=== PATIENT | male | born 1985 | race Caucasian/White ===

== ENCOUNTER 2017-01-14 10:43 | Emergency (ER) | payer MEDICAID ==
--- NOTE | 2017-01-14 11:02 | EDM.PDOC ---
ED HPI GENERAL MEDICAL PROBLEM - General Chief Complaint: Syncope Stated Complaint: syncope, nausea/vomiting Time Seen by Provider: 01/14/17 10:55 Source of Information: Reports: Patient, Old Records ([facility] EMR. No paper hospital chart available.) History Limitations: Reports: No Limitations - History of Present Illness INITIAL COMMENTS - FREE TEXT/NARRATIVE: The patient drove himself to the emergency room via private automobile for evaluation of a syncopal episode at home at about 7 AM this morning with some nausea and one episode of emesis at that time. He did have a minor fall and head injury at time of the above episode with history of recurrent syncope at least 3 times in the past since March 2016 with no previous workup to this point. He does admit to drinking at least 10 shots of liquor mixed with energy drinks with last alcohol intake at about 1 AM this morning. He denies any urinary/stool incontinence seizure activity,visual changes, change in mental status, paresthesia, neurological deficits, or other significant complaints or injuries. Patient does have a 7/10 nonspecific generalized headache at this time. No recent history of abdominal pain, heartburn, diarrhea, melena, gross hematochezia, or any food intolerance, including fatty foods, etc.. He did have a normal bowel movement at 8 AM by his history. The patient denies any chest pain/pressure, heart flutter, orthostasis, orthopnea, diaphoresis, paresthesias , recent decreased exercise tolerance, or any other anginal-type symptoms, however some nonspecific dizziness and vertigo. The patient also denies any recent fever, cough, wheezing, dyspnea, etc.. Onset: Today, Sudden Onset Date: 01/14/17 Onset Time: 07:00 Duration: Intermittent Location: Reports: Head. Denies: Face, Neck, Chest, Abdomen, Back, Pelvis, Upper Extremity, Left, Upper Extremity, Right, Lower Extremity, Left, Generalized, Radiates to Quality: Reports: Ache, Pressure, Same as Previous Episode Severity: Moderate Improves with: Reports: Rest Worsens with: Reports: Movement Context: Reports: Other (As above) Associated Symptoms: Reports: Headaches, Loss of Appetite (Occasional), Nausea/ Vomiting, Syncope. 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 [No Known Home Meds] 01/14/17 [History] Past Medical History HEENT History: Reports: Allergic Rhinitis. Denies: Hard of Hearing, Impaired Vision Cardiovascular History: Reports: Syncope. Denies: Afib, Aneurysm, Arrhythmia, Blood Clots/VTE/DVT, CAD, Heart Murmur, Hypertension, NV, PVD Other Cardiovascular History: Recurrent syncope since March 2016 with no workup to this point; Patient does not know cholesterol status Respiratory History: Reports: Asthma, Sleep Apnea, Other (See Below). Denies: Bronchitis, Recurrent, Intubation, Previous, PE, Pneumonia, Recurrent, Pneumothorax Other Respiratory History: Patient noncompliant with his CPAP Gastrointestinal History: Reports: Colon Polyp, Gastritis, GERD, PUD, Other ( See Below). Denies: Celiac Disease, Cholelithiasis, Chronic Constipation, Chronic Diarrhea, Fecal Incontinence, GI Bleed, Hepatitis, Irritable Bowel Syndrome, Jaundice, Pancreatitis Other Gastrointestinal History: History of probable gastric ulcer secondary to alcohol use Genitourinary History: Reports: None, STD, Other (See Below). Denies: Acute Renal Failure, BPH, Chronic Renal Insuffiency, Renal Calculus, Urinary Incontinence, UTI, Recurrent Other Genitourinary History: Herpes simplex type 2 in 2016 Musculoskeletal History: Reports: Arthritis, Back Pain, Chronic, Fracture, Neck Pain, Chronic, Osteoarthritis, Other (See Below). Denies: Amputation, Gout, RA , SLE Other Musculoskeletal History: Frequent right hand fractures of metatarsals #4 and #5boxer's fracture fractures with last fracture in about 2014 Neurological History: Reports: Headaches, Chronic, Migraines, Other (See Below) . Denies: Cerebral Aneurysms, Concussion, CVA, Head Trauma, MS, Neuropathy, Peripheral, Parkinson's, Seizure, TIA Other Neuro History: Borderline dyslexia Psychiatric History: Reports: ADHD, Addiction, Anxiety, Depression, Emotional Problems, Other (See Below). Denies: Abuse, Victim of, Psych Hospitalization(s) , PTSD, Suicide Attempt, Suicidal Ideation Other Psychiatric History: Alcohol and illicit drug addiction as below Endocrine/Metabolic History: Reports: None. Denies: Diabetes, Type I, Diabetes , Type II, Hypothyroidism, IDDM Hematologic History: Reports: None. Denies: Anemia, Blood Transfusion(s), Iron Deficiency Immunologic History: Reports: None. Denies: AIDS, HIV, SLE Oncologic (Cancer) History: Reports: None. Denies: Hodgkin's Lymphoma, Leukemia , Lymphoma, Malignant Melanoma, Non-Hodgkin's Lymphoma, Ovarian, Squamous Cell Carcinoma Dermatologic History: Denies: Eczema, Psoriasis - Infectious Disease History Infectious Disease History: Reports: None. Denies: C-Difficile, Chicken Pox, Measles, Meningitis, Mononucleosis, MRSA, Mumps, Pertussis (Whooping Cough), Rheumatic Fever, RSV, Rubella, Scarlet Fever, Shingles, TB, VRE - Past Surgical History Head Surgeries/Procedures: Reports: None HEENT Surgical History: Reports: None. Denies: Adenoidectomy, Eye Surgery, Myringotomy w Tube(s), Naso-Sinus Surgery, Oral Surgery, Tonsillectomy Cardiovascular Surgical History: Reports: None. Denies: Varicose Respiratory Surgical History: Reports: None. Denies: Thoracentesis GI Surgical History: Reports: Colonoscopy, Polypectomy, Other (See Below). Denies: Appendectomy, Cholecystectomy, Hernia, Abdominal, Hernia, Inguinal, Hernia Repair/Other Other GI Surgeries/Procedures: Colonoscopy in 2009 with removal of 3 polyps of unknown type at that time. Unsuccessful EGD at that time by his history Male Surgical History: Reports: Circumcision, Other (See Below). Denies: Vasectomy Other Male Surgeries/Procedures: Circumcision as an Endocrine Surgical History: Reports: None. Denies: Thyroid Biopsy Neurological Surgical History: Reports: None. Denies: C-Spine, Discectomy, Intracranial, Laminectomy, Lumbar Spine, Scoliosis, Spinal Fusion, Vertebroplasty Musculoskeletal Surgical History: Reports: None. Denies: Arthroscopic Procedure , Carpal Tunnel, Ganglion Cyst, Joint Replacement, ORIF, Shoulder Surgery Oncologic Surgical History: Reports: None Dermatological Surgical History: Reports: None Social & Family History - Tobacco Use Smoking Status *Q: Heavy Tobacco Smoker Tobacco Use Within Last Twelve Months: Cigarettes Years of Tobacco use: 18 Packs/Tins Daily: 0.4 (Started smoking cigarettes at age 13 with maximum use of one pack per day; additional chewing tobacco use since age 26 with one half1 can per day) Used Tobacco, but Quit: No Smoking Cessation Information Provided To Patient: Yes Second Hand Smoke Exposure: Yes Source of Second Hand Smoke Exposure: Roommate smokes Second Hand Smoke Education Provided: Yes - Caffeine Use Caffeine Use: Reports: Energy Drinks (1 can per week), Soda (3 sodas per day and he). Denies: Coffee, Tea - Alcohol Use Alcohol Use History: Yes Days Per Week of Alcohol Use: 5 (No Previous DWIs however history of alcohol abuse with no previous treatment) Number of Drinks Per Day: 6 (Usually shots or beer) Total Drinks Per Week: 30 Date of Last Drink: 01/14/17 Time of Last Drink: 01:00 Alcohol Use in Last Twelve Months: Yes Alcohol Use Frequency: Binges - Recreational Drug Use Recreational Drug Use: No Recreational Drug Type: Reports: Cocaine (Cocaine use between ages 19 and 26 intranasally), Marijuana/Hashish (Marijuana use since age 14 with average use of one joint 2 times per week). Denies: Amphetamines (Speed), Heroin, Inhalants (Glues, Solvents, Aerosols), LSD (Acid), Methamphetamine, Morphine - Living Situation & Occupation Living situation: Reports: Single (No children), Other (Roommate) Occupation: Unemployed (Previously worked at [employer]) ED ROS GENERAL - Review of Systems Review Of Systems: See Below Constitutional: Reports: Decreased Appetite (Mild), Weight Loss (Mild). Denies : Fever, Chills, Weakness, Fatigue, Night Sweats, Diaphoresis, Weight Gain HEENT: Reports: No Symptoms, Vertigo. Denies: Dental Pain, Ear Pain, Eye Pain, Glasses, Hearing Loss, Rhinitis, Sinus Problem, Throat Pain, Throat Swelling, Vision Change Respiratory: Reports: No Symptoms. Denies: Shortness of Breath, Wheezing, Pleuritic Chest Pain, Cough, Hemoptysis Cardiovascular: Reports: Lightheadedness, Syncope. Denies: Chest Pain, Blood Pressure Problem, Claudication, Dyspnea on Exertion, Orthopnea, Palpitations, PND Endocrine: Reports: No Symptoms. Denies: Fatigue GI/Abdominal: Reports: Anorexia, Decreased Appetite, Nausea, Vomiting. Denies: Abdominal Pain, Black Stool, Bloody Stool, Constipation, Diarrhea, Distension, Flatus, Hematemesis, Hematochezia, Melena, Stool Incontinence : Reports: No Symptoms. Denies: Discharge, Dysuria, Flank Pain, Frequency, Hematuria, Incontinence, Pain, Urgency, Urinary Retention Musculoskeletal: Reports: No Symptoms. Denies: Neck Pain, Shoulder Pain, Arm Pain, Back Pain, Leg Pain Skin: Reports: No Symptoms. Denies: Jaundice, Diaphoresis, Bruising, Wound Neurological: Reports: Dizziness, Syncope. Denies: Headache, Numbness, Paresthesia, Seizure, Tingling, Difficulty Walking, Weakness, Change in Speech, Gait Disturbance Psychiatric: Reports: Anxiety, Cravings (Alcohol), Depression. Denies: Agitation, Confusion, Hallucinations, Homicidal Ideation, Suicidal Ideation ED EXAM, GENERAL - Physical Exam Exam: See Below Exam Limited By: Intoxication General Appearance: Alert, WD/WN, No Apparent Distress, Anxious (Moderate) Eye Exam: Bilateral Eye: EOMI, Normal Fundi, Normal Inspection (No nystagmus), PERRL Ears: Normal External Exam, Normal Canal (Although moderate to severe cerumen bilaterally), Hearing Grossly Normal, Normal TMs Nose: Normal Inspection, Normal Mucosa, No Blood Throat/Mouth: Normal Lips, Normal Gums, Normal Oropharynx, Normal Voice, No Airway Compromise. No: Normal Teeth (Multiple broken teeth and caries into the gumline of his molars and premolars with no facial swelling, abscess, drainage, etc.), Dysphagia, Perioral Cyanosis Head: Atraumatic, Normocephalic. No: Facial Swelling, Facial Tenderness, Sinus Tenderness Neck: Normal Inspection, Supple, Non-Tender, Full Range of Motion. No: Carotid Bruit, Lymphadenopathy (L), Lymphadenopathy (R), Thyromegaly Respiratory/Chest: No Respiratory Distress, Lungs Clear, Normal Breath Sounds, No Accessory Muscle Use, Chest Non-Tender. No: Pleural Rub, Retractions Cardiovascular: Normal Peripheral Pulses, Regular Rate, Rhythm, No Edema, No Gallop, No JVD, No Murmur, No Rub. No: Gallop/S3, Gallop/S4 Peripheral Pulses: 2+: Radial (L), Radial (R), Dorsalis Pedis (L), Dorsalis Pedis (R) GI/Abdominal: Normal Bowel Sounds, Soft, Non-Tender, No Organomegaly, No Distention, No Abnormal Bruit, No Mass. No: Guarding (Male) Exam: Deferred Rectal (Males) Exam: Deferred Back Exam: Normal Inspection, Full Range of Motion. No: CVA Tenderness (L), CVA Tenderness (R), Muscle Spasm Extremities: Normal Inspection, Normal Range of Motion, Non-Tender, No Pedal Edema, Normal Capillary Refill. No: Uvaldo's Sign Neurological: Alert, Oriented, CN II-XII Intact, Normal Cognition, Normal Gait, Normal Reflexes (Negative Babinski's, finger to nose, and pronator rotation tests. No evidence of facial paresis, tongue deviation, orthostasis, etc.. Excellent reverse thought processes.), No Motor/Sensory Deficits, Other (Mild to moderate clinical orthostasis) Psychiatric: Anxious (Moderate), Depressed Mood (Moderate with adequate eye contact) Skin Exam: Warm, Dry, Intact, Normal Color, No Rash. No: Diaphoretic, Jaundice , Pallor, Petechiae, Wound/Incision Lymphatic: No Adenopathy EKG INTERPRETATION EKG Date: 01/14/17 Time: 11:20 Rhythm: NSR Rate (Beats/Min): 78 [place]: Normal (Neutral) P-Wave: Present (Mild diffuse biphasic P waves with pulmonary hypertension by EKG) QRS: Normal (QRS interval of 0.10 seconds representing polarization changes with T-wave inversion in leads V1 and aVL) ST-T: Normal QT: Normal SC/PQ Interval: 0.14 seconds with no delta waves Comparison: NA - No Prior EKG EKG Interpretation Comments: 1. No acute ischemic changes 2. Repolarization changes 3. Pulmonary hypertension by EKG Course - Vital Signs Last Recorded V/S: Last Vital Signs Temp 36.8 C 01/14/17 10:56 Pulse 77 01/14/17 13:04 Resp 17 01/14/17 13:04 BP 152/92 H 01/14/17 13:04 Pulse Ox 100 01/14/17 13:04 Vital Signs - 24 hr 01/14/17 01/14/17 01/14/17 10:45 10:48 10:50 Temperature [ Oral] Pulse, 100 87 90 Peripheral [ Right Pulse Oximetry] Respiratory 18 18 18 Rate Blood Pressure 127/95 H 100/78 98/76 [Right Upper Arm] O2 Sat by Pulse 100 100 100 Oximetry 01/14/17 01/14/17 01/14/17 10:56 11:35 12:00 Temperature [ 36.8 C Oral] Pulse, 90 72 74 Peripheral [ Right Pulse Oximetry] Respiratory 12 18 18 Rate Blood Pressure 127/92 H 127/95 H 124/95 H [Right Upper Arm] O2 Sat by Pulse 100 100 100 Oximetry 01/14/17 01/14/17 01/14/17 12:09 12:25 12:40 Temperature [ Oral] Pulse, 77 77 80 Peripheral [ Right Pulse Oximetry] Respiratory 17 18 18 Rate Blood Pressure 146/94 H 142/96 H 140/95 H [Right Upper Arm] O2 Sat by Pulse 100 100 100 Oximetry 01/14/17 01/14/17 01/14/17 12:45 12:55 13:04 Temperature [ Oral] Pulse, 85 85 77 Peripheral [ Right Pulse Oximetry] Respiratory 18 17 17 Rate Blood Pressure 133/90 138/86 152/92 H [Right Upper Arm] O2 Sat by Pulse 100 100 100 Oximetry - Orders/Labs/Meds Orders: Active Orders 24 hr Category Date Time Status Cardiac Monitoring [RC] . DIRECTED Care 01/14/17 11:03 Active EKG Documentation Completion [RC] ASDIRECTED Care 01/14/17 11:03 Active Peripheral IV Care [RC] . DIRECTED Care 01/14/17 11:03 Active Pulse Oximetry [RC] CONTINUOUS Care 01/14/17 11:03 Active Up With Assistance [RC] PFP Care 01/14/17 11:03 Active Vital Signs [RC] PFP Care 01/14/17 11:03 Active Nothing per Oral Now Diet [DIET] Diet 01/14/17 Breakfast Active Abdomen Series w Chest 1V [CR] Stat Exams 01/14/17 11:31 Taken CULTURE URINE [RM] Routine Lab 01/14/17 11:04 Uncollected DRUG SCREEN, URINE [URCHEM] Stat Lab 01/14/17 11:04 Uncollected URINALYSIS W/MICROSCOPIC [UA W/MICROSCOPIC] [URIN] Lab 01/14/17 11:04 Uncollected Routine Sodium Chloride 0.9% [Saline Flush] Med 01/14/17 11:03 Active 10 ml FLUSH ASDIRECTED PRN Obtain Past Medical Record [OM.PC] Urgent Oth 01/14/17 11:03 Active Peripheral IV Insertion Adult [OM.PC] Stat Oth 01/14/17 11:03 Ordered Resuscitation Status Stat Resus Stat 01/14/17 11:03 Ordered Medication Orders Sodium Chloride (Saline Flush) 10 ml FLUSH ASDIRECTED PRN PRN Reason: Keep Vein Open Last Admin: 01/14/17 11:16 Dose: 10 ml Labs: Laboratory Tests 01/14/17 01/14/17 01/14/17 Range/Units 11:14 11:14 11:14 WBC 8.4 (4.0-10.2) K/uL RBC 5.36 (4.33-5.41) M/uL Hgb 18.1 H* D (13.1-16.8) g/dL Hct 49.4 H (39.0-49.0) % MCV 92.2 D (84.0-98.0) fL MCH 33.8 H (28.2-33.3) pg MCHC 36.6 H (31.7-36.0) g/dL RDW 12.1 (11.2-14.1) % Plt Count 290 (150-350) K/uL Neut % (Auto) 68.0 (45.0-80.0) % Lymph % (Auto) 24.0 (10.0-50.0) % [place] % (Auto) 7.2 (2.0-14.0) % Eos % (Auto) 0.6 (0.0-5.0) % Baso % (Auto) 0.2 (0.0-2.0) % Neut # (Auto) 5.69 (1.40-7.00) K/uL Lymph # (Auto) 2.01 (0.50-3.50) K/uL [place] # (Auto) 0.60 (0.00-1.00) K/uL Eos # (Auto) 0.05 (0.00-0.50) K/uL Baso # (Auto) 0.02 (0.00-0.20) K/uL PT 11.6 (9.8-11.7) SEC INR 1.1 APTT 23.8 (22.1-29.8) SEC D-Dimer, Quantitative < 100 (0-400) ng/mL Sodium (136-145) mmol/L Potassium (3.5-5.1) mmol/L Chloride (98-107) mmol/L Carbon Dioxide (21.0-32.0) mmol/L BUN (7-18) mg/dL Creatinine (0.51-1.17) mg/dL Est Cr Clr Drug Dosing mL/min Estimated GFR (MDRD) mL/min Glucose (74-106) mg/dL Lactic Acid (0.4-2.0) mmol/L Uric Acid (2.6-7.2) mg/dL Calcium (8.5-10.1) mg/dL Magnesium (1.8-2.4) mg/dL Total Bilirubin (0.2-1.0) mg/dL AST (15-37) U/L ALT (12-78) U/L Alkaline Phosphatase (46-116) IU/L Ammonia (11-32) umol/L Creatine Kinase (26-308) U/L Creatine Kinase Index (0.0-2.5) % CK-MB (CK-2) (0.00-3.60) ng/mL Troponin I (0.000-0.056) ng/mL NT-Pro-B Natriuret Pep (0-125) pg/mL Total Protein (6.4-8.2) g/dL Albumin (3.4-5.0) g/dL TSH, Ultra Sensitive (0.358-3.740) mIU/mL Ethyl Alcohol (0.000-0.080) g/dL 01/14/17 01/14/17 01/14/17 Range/Units 11:14 11:14 11:14 WBC (4.0-10.2) K/uL RBC (4.33-5.41) M/uL Hgb (13.1-16.8) g/dL Hct (39.0-49.0) % MCV (84.0-98.0) fL MCH (28.2-33.3) pg MCHC (31.7-36.0) g/dL RDW (11.2-14.1) % Plt Count (150-350) K/uL Neut % (Auto) (45.0-80.0) % Lymph % (Auto) (10.0-50.0) % [place] % (Auto) (2.0-14.0) % Eos % (Auto) (0.0-5.0) % Baso % (Auto) (0.0-2.0) % Neut # (Auto) (1.40-7.00) K/uL Lymph # (Auto) (0.50-3.50) K/uL [place] # (Auto) (0.00-1.00) K/uL Eos # (Auto) (0.00-0.50) K/uL Baso # (Auto) (0.00-0.20) K/uL PT (9.8-11.7) SEC INR APTT (22.1-29.8) SEC D-Dimer, Quantitative (0-400) ng/mL Sodium 142 (136-145) mmol/L Potassium 4.1 (3.5-5.1) mmol/L Chloride 106 (98-107) mmol/L Carbon Dioxide 26.0 (21.0-32.0) mmol/L BUN 9 (7-18) mg/dL Creatinine 0.89 (0.51-1.17) mg/dL Est Cr Clr Drug Dosing 105.12 mL/min Estimated GFR (MDRD) > 60 mL/min Glucose 108 H (74-106) mg/dL Lactic Acid 2.4 H (0.4-2.0) mmol/L Uric Acid 7.1 (2.6-7.2) mg/dL Calcium 9.1 (8.5-10.1) mg/dL Magnesium 2.1 (1.8-2.4) mg/dL Total Bilirubin 0.7 (0.2-1.0) mg/dL AST 23 (15-37) U/L ALT 29 (12-78) U/L Alkaline Phosphatase 131 H (46-116) IU/L Ammonia 20 (11-32) umol/L Creatine Kinase 78 (26-308) U/L Creatine Kinase Index 2.1 (0.0-2.5) % CK-MB (CK-2) 1.60 (0.00-3.60) ng/mL Troponin I 0.000 (0.000-0.056) ng/mL NT-Pro-B Natriuret Pep 8 (0-125) pg/mL Total Protein 8.2 (6.4-8.2) g/dL Albumin 3.8 (3.4-5.0) g/dL TSH, Ultra Sensitive 1.372 (0.358-3.740) mIU/mL Ethyl Alcohol 0.115 H (0.000-0.080) g/dL Urine specimen for drug screen could not be obtained Meds: Medications Generic Name Dose Route Start Last Admin Trade Name Rehanq PRN Reason Stop Dose Admin Sodium Chloride 10 ml 01/14/17 11:03 01/14/17 11:16 Saline Flush FLUSH 10 ml ASDIRECTED PRN Administration Keep Vein Open Discontinued Medications Generic Name Dose Route Start Last Admin Trade Name Rehanq PRN Reason Stop Dose Admin Famotidine 40 mg 01/14/17 11:03 01/14/17 11:15 Pepcid IVPUSH 01/14/17 11:04 40 mg ONETIME ONE Administration Lactated Ringer's 1,000 mls @ 999 mls/hr 01/14/17 11:04 01/14/17 11:16 Ringers, Lactated IV 01/14/17 12:04 999 mls/hr .BOLUS ONE Administration - Radiology Interpretation Free Text/Narrative:: monitoring tech shows normal sinus rhythm with heart rate in the 70s with no ectopy or arrhythmia Acute abdominal x-rays shows evidence of moderate pulmonary obstructive disease and moderate stool with no fluid levels, free air, ileus, obstruction, pulmonary infiltrates, pneumothorax, cardiomegaly, CHF, etc. Departure - Departure Time of Disposition: 13:25 Disposition: Home, Self-Care 01 Clinical Impression: Alcohol abuse, Dehydration, Tobacco abuse counseling, Illicit drug use, continuous, Peptic reflux disease, Mixed anxiety depressive disorder, Lactic acid increased, Polycythemia Syncope Qualifiers: Syncope type: unspecified Qualified Code(s): R55 - Syncope and collapse Asthma Qualifiers: Asthma severity: mild Asthma persistence: intermittent Asthma complication type : uncomplicated Qualified Code(s): J45.20 - Mild intermittent asthma, uncomplicated Osteoarthritis Qualifiers: Osteoarthritis location: multiple joints Osteoarthritis type: primary Qualified Code(s): M15.0 - Primary generalized (osteo)arthritis - Discharge Information Instructions: Dehydration, Adult, [id number], Syncope, [id number] Referrals: PCP,None [Ordering Only Provider] - Forms: ED Department Discharge Additional Instructions: 1. Followup with your regular provider in 2 days as directed for reevaluation and recommended repeat CBC and lactic acid level. Discuss with your regular provider at that time recent recurrent syncopal episodes with further workup per their instructions 2. Activity as tolerated with strict injury/fall precautions as discussed 3. Discontinue all energy drink and alcohol use SHAY as discussed with possible future treatment through your regular provider 4. Stop all tobacco and marijuana use SHAY as directed/per provided information and consider contacting [facility], etc.. 5. Follow-up with your dentist SHAY - Problem List & Annotations (1) Syncope SNOMED Code(s): 194754222 Code(s): R55 - SYNCOPE AND COLLAPSE Status: Acute Priority: High Current Visit: Yes Annotation/Comment:: History of recurrent syncope of unknown etiology possibly related to his alcohol use, however patient states that this has also occurred at times when he has not had any alcohol to drink. Further workup as per discharge instruction with recommended future echocardiogram on etc., which the patient wishes to discuss with his regular provider. Fall/injury precautions discussed Qualifiers: Syncope type: unspecified Qualified Code(s): R55 - Syncope and collapse (2) Dehydration SNOMED Code(s): 08073230 Code(s): E86.0 - DEHYDRATION Status: Acute Priority: High Current Visit : Yes Onset Date: 01/14/17 Annotation/Comment:: Aggressive IV fluids given in the emergency room as above with improved/resolved symptoms at time of discharge as above. Note initially positive orthostatic blood pressures with normal orthostatic blood pressures at time of discharge (3) Lactic acid increased SNOMED Code(s): 26645092 Code(s): E87.2 - ACIDOSIS Status: Acute Priority: High Current Visit: Yes Onset Date: 01/14/17 Annotation/Comment:: Lactic acid elevation likely secondary to dehydration with IV fluids given as above. No evidence of fever, leukocytosis, sepsis, etc.. Close follow-up by regular provider, including repeat lactic acid level, as per discharge instructions (4) Alcohol abuse SNOMED Code(s): 96958875 Code(s): F10.10 - ALCOHOL ABUSE, UNCOMPLICATED Status: Acute Priority: High Current Visit: Yes Annotation/Comment:: Alcohol level increased at this time with alcohol abuse history as above. He denies any previous history of alcoholic hepatitis, seizures, DTs, etc. Alcohol treatment SHAY advisable. (5) Asthma SNOMED Code(s): 305308722 Code(s): J45.909 - UNSPECIFIED ASTHMA, UNCOMPLICATED Status: Chronic Priority: Medium Current Visit: Yes Annotation/Comment:: No recent fever or bronchitic type symptoms. Stable by history Qualifiers: Asthma severity: mild Asthma persistence: intermittent Asthma complication type: uncomplicated Qualified Code(s): J45.20 - Mild intermittent asthma, uncomplicated (6) Illicit drug use, continuous SNOMED Code(s): 612370337 Code(s): F19.90 - OTHER PSYCHOACTIVE SUBSTANCE USE, UNSPECIFIED, UNCOMPLICATED Status: Chronic Priority: Medium Current Visit: Yes Annotation/Comment:: Discontinuation of illicit drugs and energy drinks strongly recommended (7) Mixed anxiety depressive disorder SNOMED Code(s): 626428391 Code(s): F41.8 - OTHER SPECIFIED ANXIETY DISORDERS Status: Chronic Priority: Medium Current Visit: Yes Annotation/Comment:: Moderate control. Alcohol treatment, etc. as above. Note previous history of ADHD with no current medical therapy. Emotional support provided (8) Osteoarthritis SNOMED Code(s): 482256467 Code(s): M19.90 - UNSPECIFIED OSTEOARTHRITIS, UNSPECIFIED SITE Status: Chronic Priority: Medium Current Visit: Yes Annotation/Comment:: Stable by history Qualifiers: Osteoarthritis location: multiple joints Osteoarthritis type: primary Qualified Code(s): M15.0 - Primary generalized (osteo)arthritis (9) Peptic reflux disease SNOMED Code(s): 69504629 Code(s): K21.9 - GASTRO-ESOPHAGEAL REFLUX DISEASE WITHOUT ESOPHAGITIS Status: Chronic Priority: Medium Current Visit: Yes Annotation/Comment:: Stable by history. High-dose IV Pepcid given as GI prophylaxis (10) Polycythemia SNOMED Code(s): 966678237 Code(s): D75.1 - SECONDARY POLYCYTHEMIA Status: Acute Priority: High Current Visit: Yes Onset Date: 01/14/17 Annotation/Comment:: Significant oocyte anemia today likely secondary to dehydration and his asthma. Close follow -up by regular provider as per discharge instructions, including repeat CBC (11) Tobacco abuse counseling SNOMED Code(s): 612413621, [id number] Code(s): Z71.6 - TOBACCO ABUSE COUNSELING Status: Chronic Priority: Medium Current Visit: Yes Annotation/Comment:: Tobacco cessation strongly encouraged with information provided - Problem List Review Problem List Initiated/Reviewed/Updated: Yes - My Orders Last 24 Hours: My Active Orders 01/14/17 11:03 Cardiac Monitoring [RC] . DIRECTED EKG Documentation Completion [RC] ASDIRECTED Peripheral IV Care [RC] . DIRECTED Pulse Oximetry [RC] CONTINUOUS Up With Assistance [RC] PFP Vital Signs [RC] PFP Sodium Chloride 0.9% [Saline Flush] 10 ml FLUSH ASDIRECTED PRN Obtain Past Medical Record [OM.PC] Urgent Peripheral IV Insertion Adult [OM.PC] Stat Resuscitation Status Stat 01/14/17 11:04 CULTURE URINE [RM] Routine DRUG SCREEN, URINE [URCHEM] Stat URINALYSIS W/MICROSCOPIC [UA W/MICROSCOPIC] [URIN] Routine 01/14/17 11:31 Abdomen Series w Chest 1V [CR] Stat 01/14/17 Breakfast Nothing per Oral Now Diet [DIET] - Assessment/Plan Last 24 Hours: My Active Orders 01/14/17 11:03 Cardiac Monitoring [RC] . DIRECTED EKG Documentation Completion [RC] ASDIRECTED Peripheral IV Care [RC] . DIRECTED Pulse Oximetry [RC] CONTINUOUS Up With Assistance [RC] PFP Vital Signs [RC] PFP Sodium Chloride 0.9% [Saline Flush] 10 ml FLUSH ASDIRECTED PRN Obtain Past Medical Record [OM.PC] Urgent Peripheral IV Insertion Adult [OM.PC] Stat Resuscitation Status Stat 01/14/17 11:04 CULTURE URINE [RM] Routine DRUG SCREEN, URINE [URCHEM] Stat URINALYSIS W/MICROSCOPIC [UA W/MICROSCOPIC] [URIN] Routine 01/14/17 11:31 Abdomen Series w Chest 1V [CR] Stat 01/14/17 Breakfast Nothing per Oral Now Diet [DIET] Assessment:: As above Plan: As above. Extensive precautions were given to the patient, who is in agreement with the treatment plan. See Patient Instructions for further treatment and plan.
[2017-01-14] MEDS ORDERED: Famotidine 20 MG/2 ML SDV IVPUSH ONE (11:03)
[2017-01-14] MEDS ORDERED: Sodium Chloride 0.9% 10 ML Syringe FLUSH PRN (11:03)
[2017-01-14] MEDS ORDERED: Lactated Ringers 1,000 ML IV ONE (11:04)
[2017-01-14 11:45] LABS: CHLORIDE,CL 106 mmol/L (98-107); SODIUM,NA 142 mmol/L (136-145)
[2017-01-14 13:05] VITALS: BP 152/92
== END 2017-01-14 13:25 | disposition home or self-care (01) ==
LOC: LL.ED 10:43
DX: R55 Syncope and collapse (principal); J45.20 Mild intermittent asthma, uncomplicated; M15.0 Primary generalized (osteo)arthritis; E86.0 Dehydration; K21.9 Gastro-esophageal reflux disease without esophagitis; F41.8 Other specified anxiety disorders; D75.1 Secondary polycythemia; R79.89 Other specified abnormal findings of blood chemistry; F10.10 Alcohol abuse, uncomplicated; F19.90 Other psychoactive substance use, unspecified, uncomplicated; F17.210 Nicotine dependence, cigarettes, uncomplicated; Z71.6 Tobacco abuse counseling
CPT/HCPCS: 36415; 74022; 80053; 82140; 82550; 82553; 83605; 83735; 83880; 84443; 84484; 84550; 85025; 85379; 85610; 85730; 93005; 96361; 96374; 99284; G0480; J7050; J7120; S0028

== ENCOUNTER 2017-09-13 10:29 | Emergency (ER) | payer MEDICAID ==
[2017-09-13] MEDS: Sodium Chloride 0.9% 1,000 ML IV SCH ×2 (10:46→12:00)
[2017-09-13] MEDS ORDERED: Ondansetron 4 MG/2 ML SDV IVPUSH ONE (10:55)
[2017-09-13] MEDS ORDERED: Morphine 10 MG/ML Syringe IVPUSH ONE (10:56)
[2017-09-13] MEDS ORDERED: Sodium Chloride 0.9% 10 ML Syringe FLUSH PRN (11:04)
[2017-09-13 11:19] LABS: CHLORIDE,CL 100 mmol/L (98-107); SODIUM,NA 138 mmol/L (136-145)
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
[2017-09-13] MEDS ORDERED: Iopamidol 612 MG/ML 100 ML Bottle IVPUSH ONE (12:08)
[2017-09-13 13:29] VITALS: BP 135/82
[2017-09-13] MEDS ORDERED: Famotidine 20 MG Tab PO ONE (14:16)
[2017-09-13] MEDS ORDERED: GI Cocktail Oral Solution 30 ML PO ONE (14:16)
== END 2017-09-13 14:50 | disposition home or self-care (01) ==
LOC: LL.ED 10:29
DX: F10.10 Alcohol abuse, uncomplicated (principal); F12.10 Cannabis abuse, uncomplicated; R10.84 Generalized abdominal pain; R19.7 Diarrhea, unspecified; R11.2 Nausea with vomiting, unspecified
CPT/HCPCS: 36415; 74177; 80053; 80305; 81001; 82962; 83735; 85025; 96361; 96365; 96375; 99284; A9270; G0480; J2405; J3475; J7030; Q9967

== ENCOUNTER 2018-11-29 04:35 | Emergency (ER) | payer SELFPAY ==
[2018-11-29] MEDS ORDERED: Ondansetron 4 MG/2 ML SDV IVPUSH ONE (05:23)
[2018-11-29] MEDS ORDERED: Dextrose 5%-0.45% NaCl 1,000 ML IV SCH (05:30)
[2018-11-29] MEDS: Sodium Chloride 0.9% 10 ML Syringe FLUSH PRN ×2 (05:41→06:22)
[2018-11-29 05:45] LABS: CHLORIDE,CL 105 mmol/L (98-107); SODIUM,NA 145 mmol/L (136-145)
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
[2018-11-29] MEDS ORDERED: HYDROmorphone 0.5 MG/0.5 ML Syringe IVPUSH ONE (06:14)
[2018-11-29] MEDS ORDERED: Sodium Chloride 0.9% 1,000 ML IV SCH (06:30)
[2018-11-29 07:59] VITALS: BP 114/63
== END 2018-11-29 07:30 | disposition home or self-care (01) ==
LOC: LL.ED 04:35
DX: S02.40FA Zygomatic fracture, left side, initial encounter for closed fracture (principal); S02.32XA Fracture of orbital floor, left side, initial encounter for closed fracture; S02.40DA Maxillary fracture, left side, initial encounter for closed fracture; F17.210 Nicotine dependence, cigarettes, uncomplicated; Y04.2XXA Assault by strike against or bumped into by another person, initial encounter
CPT/HCPCS: 36415; 70450; 70486; 72125; 80048; 80320; 85025; 96361; 96374; 99284; J1170; J2405; J7030; J7042; G0480